=== PATIENT | male | born 1950 | race Caucasian/White ===

== ENCOUNTER → 2020-05-19 13:49 | Outpatient (BNVA) | payer MEDICARE, SELFPAY | PROVIDERS: PCP Internal Medicine; Visit Provider Urology | DX: N48.6 Induration penis plastica (principal); N52.01 Erectile dysfunction due to arterial insufficiency; N40.1 Benign prostatic hyperplasia with lower urinary tract symptoms; N13.8 Other obstructive and reflux uropathy; R97.20 Elevated prostate specific antigen [PSA] | CPT/HCPCS: Q3014 ==

== ENCOUNTER 2020-08-13 15:19 | Outpatient (REF) | payer MEDICARE, BC, SELFPAY ==
[2020-08-14 14:14] LABS: Urine Cytology See Pathology rpt
== END 2020-08-13 15:20 | disposition home or self-care (01) ==
LOC: HO.LNP 15:19
PROVIDERS: PCP Internal Medicine; Visit Provider Urology
DX: R31.0 Gross hematuria (principal); N39.0 Urinary tract infection, site not specified; R97.20 Elevated prostate specific antigen [PSA]; N48.6 Induration penis plastica; Z87.891 Personal history of nicotine dependence
CPT/HCPCS: 81002; 88112; 99212

== ENCOUNTER 2020-08-18 13:25 | Outpatient (REF) | payer MEDICARE, BC, SELFPAY ==
[2020-08-18 14:37] LABS: Glucose Urine UA NEG (NEG); Leukocyte Esterase Urine NEG (NEG); Nitrite Urine NEG (NEG); PH 6.5 (5.0-8.0); Urine Blood NEG (NEG); Urine Ketones NEG (NEG); Urine Protein NEG (NEG-TRACE)
[2020-08-18 14:40] LABS: Appearance Urine CLEAR; Color Urine YELLOW
[2020-08-18 14:46] LABS: RBC Urine 0-2 /HPF (0); Squamous Epithelial Cell Urine TRACE /LPF; WBC Urine 0 /HPF (0-4)
== END 2020-08-18 13:26 | disposition home or self-care (01) ==
LOC: HO.LAB 13:25
PROVIDERS: PCP Internal Medicine; Visit Provider Urology
DX: R31.0 Gross hematuria (principal); N39.0 Urinary tract infection, site not specified
CPT/HCPCS: 81001; 87086

== ENCOUNTER → 2020-09-01 12:43 | Outpatient (BNVA) | payer MEDICARE, BC, SELFPAY | PROVIDERS: PCP Internal Medicine; Visit Provider Urology | DX: N40.1 Benign prostatic hyperplasia with lower urinary tract symptoms (principal); N13.8 Other obstructive and reflux uropathy; N52.01 Erectile dysfunction due to arterial insufficiency; R97.20 Elevated prostate specific antigen [PSA] | CPT/HCPCS: 52000; 81002; 99212 ==

== ENCOUNTER → 2020-11-17 14:20 | Outpatient (BNVA) | payer MEDICARE, BC, SELFPAY | PROVIDERS: PCP Internal Medicine; Visit Provider Urology | DX: N40.1 Benign prostatic hyperplasia with lower urinary tract symptoms (principal); N13.8 Other obstructive and reflux uropathy; N48.6 Induration penis plastica; N52.01 Erectile dysfunction due to arterial insufficiency | CPT/HCPCS: 99212 ==

== ENCOUNTER → 2021-07-09 11:48 | Outpatient (BNVA) | payer MEDICARE, BC, SELFPAY | PROVIDERS: PCP Internal Medicine; Visit Provider Urology | DX: N52.01 Erectile dysfunction due to arterial insufficiency (principal); N48.6 Induration penis plastica; R97.20 Elevated prostate specific antigen [PSA] | CPT/HCPCS: Q3014 ==

== ENCOUNTER 2021-09-22 11:28 | Outpatient (REF) | payer MEDICARE, BC, SELFPAY ==
[2021-09-22 12:38] LABS: Appearance Urine CLEAR; Color Urine YELLOW; Glucose Urine UA NEG (NEG); Leukocyte Esterase Urine NEG (NEG); Nitrite Urine NEG (NEG); PH 6.5 (5.0-8.0); Urine Blood NEG (NEG); Urine Ketones NEG (NEG); Urine Protein NEG (NEG-TRACE)
[2021-09-22 12:49] LABS: WBC Urine 0 /HPF (0-4)
[2021-09-22 13:21] LABS: Prostate Specific Antigen 1.39 ng/mL (<0.05-4.0)
== END 2021-09-22 11:29 | disposition home or self-care (01) ==
LOC: HO.LAB 11:28
PROVIDERS: Visit Provider Urology
DX: N39.0 Urinary tract infection, site not specified (principal); N48.6 Induration penis plastica; Z12.5 Encounter for screening for malignant neoplasm of prostate
CPT/HCPCS: 36415; 81001; 84153; 87086

== ENCOUNTER → 2022-01-07 08:25 | Outpatient (BNVA) | payer MEDICARE, BC, SELFPAY | PROVIDERS: PCP Internal Medicine; Visit Provider Urology | DX: R97.20 Elevated prostate specific antigen [PSA] (principal); N40.1 Benign prostatic hyperplasia with lower urinary tract symptoms; N13.8 Other obstructive and reflux uropathy; N48.6 Induration penis plastica | CPT/HCPCS: Q3014 ==

== ENCOUNTER → 2022-07-15 13:15 | Outpatient (BNVA) | payer MEDICARE, BC, SELFPAY | PROVIDERS: PCP Internal Medicine; Visit Provider Urology | DX: N48.6 Induration penis plastica (principal); N52.01 Erectile dysfunction due to arterial insufficiency; N40.1 Benign prostatic hyperplasia with lower urinary tract symptoms; N13.8 Other obstructive and reflux uropathy | CPT/HCPCS: 99212 ==

== ENCOUNTER 2023-03-23 12:55 | Outpatient (AMB) | payer MEDICARE, BC, SELFPAY ==
--- NOTE | 2023-03-23 13:57 | A.OFFVIS_ITS ---
Intake Intake Visit Reasons: 6M/PSA/Testosterone(set) Allergies No Known Allergies Allergy (Verified 03/23/23 13:36) HPI HPI Comments History of Present Illness Details Kash very pleasant male. He is a patient of Dr. Cortez. He seen for the following urologic issues - Peyronie disease - lower urinary tract symptoms - elevated PSA Telemedicine Evaluation 15 min Consultation [employer]ide[employer] Annie Video attempted Current medications include tadalafil 5 daily Finasteride - reduce to M/W/F 6m f/u PVR Elevated PSA/Abnormal AMANDA: Peyronie's plaque has stabilized Has not progressed Minimal pain Still functional Picture of erection shows 20-30% dorsal curvature He presents for further evaluation of elevated PSA Current management is observation. Laboratory investigations include a free and total PSA evaluation January 2007 3.3, March 2009 2.1, August 2014 4.2, November 2014 2.6, July 2015 2.9, December 2015 3.9, Free PSA 0.28 July 2016 4.5, 03/07 T 680 10/06 3.7, 04/08 4.5 01/07 3.8, 04/09 5.3 11% 08/08 4.8 15%, 02/08 T 650 PSA 2.3 - 11/09 PSA 2.2, 07/13 1.7 Individualized Prostate Cancer Risk Calculator 5-10% high risk, Would like to continue with observation and understands and accepts the risks of a possible delay in diagnosis. A TRUS biopsy has been performed and is negative March 2006 with PSA of 5.2 Therapeutic plan will be review in 6 months Lower Urinary Tract Symptoms: Prior treatments include 12/07 TUR GLP. Prostate Symptom Score Moderate (9-19), Bother 3. Symptoms include 03/07 incomplete emptying, weak stream, nocturia (>2), and are progressing. Results from testing include cystoscopy Enlarged lateral lobes, apple shaped intrusion 04/07 renal/bladder us Yes date 04/05/2017 PVR 30 prostate size 70 Prior Prostate Score moderate. PSA 4-5 04/08 4.5, 04/09 5.3 11%, 07/13 1.7, 10/10 1.4, 02/11 1.9 T 900 Prostate volume 50+gm - large on AMANDA. 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 Peyronie's disease Testicular pain Weak urinary stream Surgical History H/O angioplasty History of back surgery History of carpal tunnel release History of hand surgery History of hernia repair History of hydrocelectomy History of tonsillectomy Review of Systems Const All systems reviewed & are unremarkable except as noted in HPI and below Reports no additional complaints Resp Reports no additional complaints GI Reports no additional complaints Reports as per HPI Musc Reports no additional complaints Physical Exam Telemedicine evaluation Appropriate responses Regular breathing rate and rhythm HEENT Head: Yes normal to inspection Ears: hearing grossly normal bilaterally Eyes General: appearance normal, both eyes and all related structures Neck Neck: Yes normal visual inspection Chest Chest palpation & inspection: normal inspection of the chest Resp Effort & Inspection: normal respiratory effort and able to speak in complete sentences Assessment & Plan Assessment & Plan (1) BPH w urinary obs/LUTS: Code(s): N40.1 - Benign prostatic hyperplasia with lower urinary tract symptoms; N13.8 - Other obstructive and reflux uropathy (2) Erectile dysfunction due to arterial insufficiency: Code(s): N52.01 - Erectile dysfunction due to arterial insufficiency Plan Continue tadalafil 6 month follow-up Medications: Changed From tadalafil 5 mg PO DAILY PRN 90 tabs 1RF sexual activity N48.6 - Induration penis plastica To tadalafil 5 mg (1/2 x 10 mg) PO DAILY 90 days PRN 45 tabs 1RF sexual activity N48.6 - Induration penis plastica Patient Instructions: Imaging studies, laboratory and physical exam results were discussed and reviewed in detail. No major barriers to patient understanding were identified. An opportunity to ask questions regarding the treatment plan was provided. All questions were answered. The patient expressed understanding and agreement with the above treatment plan. The patient is aware they should contact our office by phone for worsening of their current condition or the appearance of new urologic symptoms. Compliance is encouraged with any medications and followup testing that is ordered. It is a privilege to participate in the urologic care of your patient. If you have any questions or concerns regarding treatment for the above conditions, or other urologic issues, please do not hesitate to contact me. The office telephone contact is [phone]. This note is constructed using voice recognition software. While every effort has been made to ensure accuracy floral designer errors may have been included. Yours sincerely, Dr Alin Mosqueda MD, [facility] - Urology Providers of Expert, Compassionate Care for the Genitourinary System Telehealth Telehealth Location of provider rendering services: practice address Location of patient: address on file Patient Identification confirmed using: Name, : Yes Telehealth method: video Patient verbally consented to treatment: Yes Patient verbally consented to billing insurance company: Yes Patient informed of any privacy concerns related to visit: Yes Coding Level of Care Code Tele Est Pt Level 3 (60872) Diagnoses BPH w urinary obs/LUTS N40.1; N13.8 Erectile dysfunction due to arterial insufficiency N52.01
== END 2023-03-23 14:25 | disposition home or self-care (01) ==
LOC: HO.HUSH 12:55
PROVIDERS: PCP Internal Medicine; Visit Provider Urology
DX: N40.1 Benign prostatic hyperplasia with lower urinary tract symptoms (principal); N13.8 Other obstructive and reflux uropathy; N52.01 Erectile dysfunction due to arterial insufficiency
CPT/HCPCS: 99213

== ENCOUNTER → 2023-03-23 12:55 | Outpatient (BNVA) | payer MEDICARE, BC, SELFPAY | PROVIDERS: PCP Internal Medicine; Visit Provider Urology ==

== ENCOUNTER 2023-09-27 13:24 | Outpatient (AMB) | payer MEDICARE, BC, SELFPAY ==
--- NOTE | 2023-09-27 13:32 | MHC.OFFVIS ---
Intake Visit Reasons: 6m/PVR Intake Note: Patient is Present for PVR/ Urology Med: Sildenafil, Tadalafil, Finasteride Antibiotic Allergy:None Blood Thinner:Clopidogrel Todays PVR:0 Patient wants to discuss Finasteride, patient states that he went to donate Plasma and was informed that due to him taking finasteride he is not able to donate Allergies No Known Allergies Allergy (Verified 09/27/23 13:33) Medication List - Last Reconciled 09/27/23 by Alin Mosqueda MD albuterol sulfate 90 mcg/actuation 0 mcg inhalation atorvastatin 40 mg PO DAILY atorvastatin 80 mg PO DAILY azithromycin 250 mg PO DIRECTED budesonide-formoterol 80-4.5 mcg/actuation 2 puffs PO BID clopidogrel 75 mg PO DAILY finasteride 5 mg PO DAILY levothyroxine 75 mcg PO DAILY meloxicam 15 mg PO DAILY metoprolol succinate ER 50 mg PO DAILY [id number] 140-9-5.2 gram ea PO sildenafil 50 mg PO DAILY PRN 30 days tadalafil 10 mg PO DAILY PRN 30 days vitamin E (dl, acetate) 450 mg PO DAILY HPI Comments Details: Kash very pleasant male. He is a patient of Dr. Cortez. He seen for the following urologic issues - Peyronie disease - lower urinary tract symptoms - elevated PSA Doing well with bladder emptying Finasteride - M/W/F Given refill on prescriptions tadalafil 10 mg and sildenafil 100 mg to use on demand Elevated PSA/Abnormal AMANDA: Peyronie's plaque has stabilized Has not progressed Minimal pain Still functional Picture of erection shows 20-30% dorsal curvature He presents for further evaluation of elevated PSA Current management is observation. Laboratory investigations include a free and total PSA evaluation January 2007 3.3, March 2009 2.1, August 2014 4.2, November 2014 2.6, July 2015 2.9, December 2015 3.9, Free PSA 0.28 July 2016 4.5, 03/07 T 680 10/06 3.7, 04/08 4.5 01/07 3.8, 04/09 5.3 11% 08/08 4.8 15%, 02/08 T 650 PSA 2.3 - 11/09 PSA 2.2, 07/13 1.7 Individualized Prostate Cancer Risk Calculator 5-10% high risk, Would like to continue with observation and understands and accepts the risks of a possible delay in diagnosis. A TRUS biopsy has been performed and is negative March 2006 with PSA of 5.2 Therapeutic plan will be review in 6 months Lower Urinary Tract Symptoms: Prior treatments include 12/07 TUR GLP. Prostate Symptom Score Moderate (9-19), Bother 3. Symptoms include 03/07 incomplete emptying, weak stream, nocturia (>2), and are progressing. Results from testing include cystoscopy Enlarged lateral lobes, apple shaped intrusion 04/07 renal/bladder us Yes date 04/05/2017 PVR 30 prostate size 70 Prior Prostate Score moderate. PSA 4-5 04/08 4.5, 04/09 5.3 11%, 07/13 1.7, 10/10 1.4, 02/11 1.9 T 900 Prostate volume 50+gm - large on AMANDA. 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 Weak urinary stream BPH (benign prostatic hyperplasia) Testicular pain Erectile dysfunction Elevated PSA Surgical History H/O angioplasty History of hand surgery History of carpal tunnel release History of hydrocelectomy History of back surgery History of hernia repair History of tonsillectomy Review of Systems Const Denies chills and Denies fever(s) Card Reports no additional complaints and Denies syncope Resp Denies cough GI Denies abdominal pain and Denies heartburn Reports as per HPI and Denies change in libido Neuro Denies syncope Psych Denies change in libido Endo Denies change in libido Physical Exam Const General: cooperative, healthy appearing, comfortable and no acute distress Orientation/consciousness: patient oriented x3 HEENT Face and sinus: Yes normal facial exam Mouth: moist mucous membranes Neck Neck: Yes normal visual inspection, Yes full ROM and Yes trachea midline Chest Chest palpation & inspection: normal inspection of the chest Resp Effort & Inspection: normal respiratory effort, able to speak in complete sentences and no respiratory distress GI Inspection: Yes normal to inspection Back/Spine/Pelvis Cervical Spine: normal cervical lordosis Thoracic/Lumbar Spine: thoracic and lumbar spine normal to inspection Skin General skin exam: no rashes or lesions noted Neuro General: patient oriented x3, gait normal, tone normal and moves all extremities Extrem General: Yes normal to inspection and Yes capillary refill normal Office Procedures Post Void Residual Post Residual Void Post Void Residual (PVR): 0 [id number] Void Residual by ultrasound Assessment & Plan Assessment & Plan (1) BPH w urinary obs/LUTS: Code(s): N40.1 - Benign prostatic hyperplasia with lower urinary tract symptoms; N13.8 - Other obstructive and reflux uropathy Category: Medical (2) Erectile dysfunction due to arterial insufficiency: Code(s): N52.01 - Erectile dysfunction due to arterial insufficiency Category: Medical (3) Elevated PSA: Code(s): R97.20 - Elevated prostate specific antigen [PSA] Category: Medical Plan Six-month follow-up Orders: Orders AMB Post Void Residual by ultrasound Today N13.8 - Other obstructive and reflux uropathy, N40.1 - Benign prostatic hyperplasia with lower urinary tract symptoms Patient Instructions: Imaging studies, laboratory and physical exam results were discussed and reviewed in detail. No major barriers to patient understanding were identified. An opportunity to ask questions regarding the treatment plan was provided. All questions were answered. The patient expressed understanding and agreement with the above treatment plan. The patient is aware they should contact our office by phone for worsening of their current condition or the appearance of new urologic symptoms. Compliance is encouraged with any medications and followup testing that is ordered. It is a privilege to participate in the urologic care of your patient. If you have any questions or concerns regarding treatment for the above conditions, or other urologic issues, please do not hesitate to contact me. The office telephone contact is [phone]. This note is constructed using voice recognition software. While every effort has been made to ensure accuracy filling room operator errors may have been included. Yours sincerely, Dr Alin Mosqueda MD, [facility] - Urology Providers of Expert, Compassionate Care for the Genitourinary System Coding Level of Care Code Est Pt Level 4 (13763) Diagnoses BPH w urinary obs/LUTS N40.1; N13.8 Erectile dysfunction due to arterial insufficiency N52.01 Elevated PSA R97.20 CPT Codes Post Residual Void - PVR CPT Code: 65021-Unat Void Residual by ultrasound ([id number])
== END 2023-09-27 13:56 | disposition home or self-care (01) ==
PROVIDERS: PCP Internal Medicine; Visit Provider Urology
DX: N40.1 Benign prostatic hyperplasia with lower urinary tract symptoms (principal); N13.8 Other obstructive and reflux uropathy; N52.01 Erectile dysfunction due to arterial insufficiency; R97.20 Elevated prostate specific antigen [PSA]
CPT/HCPCS: 99214

== ENCOUNTER → 2023-09-27 13:24 | Outpatient (BNVA) | payer MEDICARE, BC, SELFPAY | PROVIDERS: PCP Internal Medicine; Visit Provider Urology | DX: N40.1 Benign prostatic hyperplasia with lower urinary tract symptoms (principal); N13.8 Other obstructive and reflux uropathy; N52.01 Erectile dysfunction due to arterial insufficiency; R97.20 Elevated prostate specific antigen [PSA] | CPT/HCPCS: 51798; 99212 ==

== ENCOUNTER 2024-03-29 09:07 | Outpatient (AMB) | payer MEDICARE, BC, SELFPAY ==
--- NOTE | 2024-03-29 09:11 | MHC.OFFVIS ---
Intake Visit Reasons: 6m/PVR/UA Check Intake Note: Patient is present for PVR/Urinalysis Check Urology Med: Finasteride, Sildenafil, Tadalafil Antibiotic Allergies: None Blood Thinner: Clopidogrel Last PVR:0ML Todays PVR: 32 LAST PSA: 01/04/2023- 1.9 LAST TESTOSTERONE: 01/04/2023- H 930 Allergies No Known Allergies Allergy (Verified 09/27/23 13:33) HPI Comments Details: Kash very pleasant male. He is a patient of Dr. Cortez. He seen for the following urologic issues - Peyronie disease - lower urinary tract symptoms - elevated PSA Six-month follow-up Doing well with bladder emptying Finasteride - M/W/F Given refill on prescriptions tadalafil 10 mg and sildenafil 100 mg to use on demand Has some issues with erectile maintenance Information given regarding penile constriction band Elevated PSA/Abnormal AMANDA: Peyronie's plaque has stabilized Has not progressed Minimal pain Still functional Picture of erection shows 20-30% dorsal curvature He presents for further evaluation of elevated PSA Current management is observation. Laboratory investigations include a free and total PSA evaluation January 2007 3.3, March 2009 2.1, August 2014 4.2, November 2014 2.6, July 2015 2.9, December 2015 3.9, Free PSA 0.28 July 2016 4.5, 03/07 T 680 10/06 3.7, 04/08 4.5 01/07 3.8, 04/09 5.3 11% 08/08 4.8 15%, 02/08 T 650 PSA 2.3 - 11/09 PSA 2.2, 07/13 1.7 Individualized Prostate Cancer Risk Calculator 5-10% high risk, Would like to continue with observation and understands and accepts the risks of a possible delay in diagnosis. A TRUS biopsy has been performed and is negative March 2006 with PSA of 5.2 Therapeutic plan will be review in 6 months Lower Urinary Tract Symptoms: Prior treatments include 12/07 TUR GLP. Prostate Symptom Score Moderate (9-19), Bother 3. Symptoms include 03/07 incomplete emptying, weak stream, nocturia (>2), and are progressing. Results from testing include cystoscopy Enlarged lateral lobes, apple shaped intrusion 04/07 renal/bladder us Yes date 04/05/2017 PVR 30 prostate size 70 Prior Prostate Score moderate. PSA 4-5 04/08 4.5, 04/09 5.3 11%, 07/13 1.7, 10/10 1.4, 02/11 1.9 T 900 Prostate volume 50+gm - large on AMANDA. 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 Weak urinary stream BPH (benign prostatic hyperplasia) Testicular pain Erectile dysfunction Elevated PSA Surgical History H/O angioplasty History of hand surgery History of carpal tunnel release History of hydrocelectomy History of back surgery History of hernia repair History of tonsillectomy Review of Systems Const Denies chills and Denies fever(s) Card Reports no additional complaints and Denies syncope Resp Denies cough GI Denies abdominal pain and Denies heartburn Reports as per HPI and Denies change in libido Neuro Denies syncope Psych Denies change in libido Endo Denies change in libido Physical Exam Const General: cooperative, healthy appearing, comfortable and no acute distress Orientation/consciousness: patient oriented x3 HEENT Face and sinus: Yes normal facial exam Mouth: moist mucous membranes Neck Neck: Yes normal visual inspection, Yes full ROM and Yes trachea midline Chest Chest palpation & inspection: normal inspection of the chest Resp Effort & Inspection: normal respiratory effort, able to speak in complete sentences and no respiratory distress GI Inspection: Yes normal to inspection Back/Spine/Pelvis Cervical Spine: normal cervical lordosis Thoracic/Lumbar Spine: thoracic and lumbar spine normal to inspection Skin General skin exam: no rashes or lesions noted Neuro General: patient oriented x3, gait normal, tone normal and moves all extremities Extrem General: Yes normal to inspection and Yes capillary refill normal Office Procedures Post Void Residual Post Residual Void Post Void Residual (PVR): 32 [id number] Void Residual by ultrasound Results AMB Urinalysis, Automated UA Leukoctes 0 Juan/uL Last Edit by STACEY Hernandez on 03/29/24 09:19 UA Nitrite Negative Last Edit by STACEY Hernandez on 03/29/24 09:19 UA Urobilinogen 0.2 mg/dL Last Edit by Nori Alcantara, RMA on 03/29/24 09:19 UA Protein 0 mg/dL Last Edit by Nori Alcantara, RMA on 03/29/24 09:19 UA pH 7.0 Last Edit by Nori Alcantara, RMA on 03/29/24 09:19 UA Blood 0 Alvin/uL Last Edit by Nori Alcantara, RMA on 03/29/24 09:19 UA Specific [place] 1.010 Last Edit by Nori Alcantara, RMA on 03/29/24 09:19 UA Ketone Negative Last Edit by Nori Alcantara, RMA on 03/29/24 09:19 UA Bilirubin 0 mg/dL Last Edit by Nori Alcantara, RMA on 03/29/24 09:19 UA Glucose 0 mg/dL Last Edit by Nori Alcantara, RMA on 03/29/24 09:19 Results Reviewed Results Reviewed: Laboratory Last Values Urine pH (Auto) 7.0 03/29/24 09:14 Specific [place] (Auto) 1.010 03/29/24 09:14 Urine Protein (Auto) 0 mg/dL 03/29/24 09:14 Glucose (UA)(Auto) 0 mg/dL 03/29/24 09:14 Urine Ketones (Auto) Negative 03/29/24 09:14 Urine Blood (Auto) 0 Alvin/uL 03/29/24 09:14 Urine Nitrite (Auto) Negative 03/29/24 09:14 Urine Bilirubin (Auto) 0 mg/dL 03/29/24 09:14 Urine Urobilinogen (Auto) 0.2 mg/dL 03/29/24 09:14 Leukocyte Esterase (Auto) 0 Juan/uL 03/29/24 09:14 Assessment & Plan Assessment & Plan (1) Peyronie's disease: Code(s): N48.6 - Induration penis plastica Category: Medical (2) Erectile dysfunction due to arterial insufficiency: Code(s): N52.01 - Erectile dysfunction due to arterial insufficiency Category: Medical Plan Six-month follow-up Orders: Orders AMB Post Void Residual by ultrasound Today N13.8 - Other obstructive and reflux uropathy, N40.1 - Benign prostatic hyperplasia with lower urinary tract symptoms AMB Urinalysis Automated Today Z13.9 - Encounter for screening, unspecified Prostate Specific Antigen 6 Months N13.8 - Other obstructive and reflux uropathy, N40.1 - Benign prostatic hyperplasia with lower urinary tract symptoms Patient Instructions: Imaging studies, laboratory and physical exam results were discussed and reviewed in detail. No major barriers to patient understanding were identified. An opportunity to ask questions regarding the treatment plan was provided. All questions were answered. The patient expressed understanding and agreement with the above treatment plan. The patient is aware they should contact our office by phone for worsening of their current condition or the appearance of new urologic symptoms. Compliance is encouraged with any medications and followup testing that is ordered. It is a privilege to participate in the urologic care of your patient. If you have any questions or concerns regarding treatment for the above conditions, or other urologic issues, please do not hesitate to contact me. The office telephone contact is [phone]. This note is constructed using voice recognition software. While every effort has been made to ensure accuracy office machines teacher errors may have been included. Yours sincerely, Dr Alin Mosqueda MD, [facility] - Urology Providers of Expert, Compassionate Care for the Genitourinary System Coding Level of Care Code Est Pt Level 4 (33979) Diagnoses Peyronie's disease N48.6 Erectile dysfunction due to arterial insufficiency N52.01 CPT Codes Post Residual Void - PVR CPT Code: 10694-Wndi Void Residual by ultrasound ([id number])
== END 2024-03-29 09:49 | disposition home or self-care (01) ==
PROVIDERS: PCP Internal Medicine; Visit Provider Urology
DX: N48.6 Induration penis plastica (principal); N52.01 Erectile dysfunction due to arterial insufficiency; Z13.9 Encounter for screening, unspecified
CPT/HCPCS: 99214

== ENCOUNTER → 2024-03-29 09:07 | Outpatient (BNVA) | payer MEDICARE, BC, SELFPAY | PROVIDERS: PCP Internal Medicine; Visit Provider Urology | DX: N48.6 Induration penis plastica (principal); N52.01 Erectile dysfunction due to arterial insufficiency | CPT/HCPCS: 51798; 81003; 99212 ==

== ENCOUNTER 2024-10-03 13:04 | Outpatient (AMB) | payer MEDICARE, BC, SELFPAY ==
--- NOTE | 2024-10-03 11:48 | MHC.OFFVIS ---
Intake Visit Reasons: 6m/PSA Allergies No Known Allergies Allergy (Verified 10/03/24 11:48) HPI Comments Details: Kash very pleasant male. He is a patient of Dr. Cortez. He seen for the following urologic issues - Peyronie disease - lower urinary tract symptoms - elevated PSA Six-month follow-up Telemedicine Evaluation 15 min Consultation [employer] Video Doing well with bladder emptying Finasteride - M/W/F Given refill on prescriptions tadalafil 10 mg and sildenafil 100 mg to use on demand Has some issues with erectile maintenance Information given regarding penile constriction band Try increasing sildenafil to 200 mg on demand Elevated PSA/Abnormal AMANDA: Peyronie's plaque has stabilized Has not progressed Minimal pain Still functional Picture of erection shows 20-30% dorsal curvature He presents for further evaluation of elevated PSA Current management is observation. Laboratory investigations include a free and total PSA evaluation January 2007 3.3, March 2009 2.1, August 2014 4.2, November 2014 2.6, July 2015 2.9, December 2015 3.9, Free PSA 0.28 July 2016 4.5, 03/07 T 680 10/06 3.7, 04/08 4.5 01/07 3.8, 04/09 5.3 11% 08/08 4.8 15%, 02/08 T 650 PSA 2.3, 11/09 PSA 2.2, 07/13 1.7, 10/13 1.7 Individualized Prostate Cancer Risk Calculator 5-10% high risk, Would like to continue with observation and understands and accepts the risks of a possible delay in diagnosis. A TRUS biopsy has been performed and is negative March 2006 with PSA of 5.2 Therapeutic plan will be review in 6 months Lower Urinary Tract Symptoms: Prior treatments include 12/07 TUR GLP. Prostate Symptom Score Moderate (9-19), Bother 3. Symptoms include 03/07 incomplete emptying, weak stream, nocturia (>2), and are progressing. Results from testing include cystoscopy Enlarged lateral lobes, apple shaped intrusion 04/07 renal/bladder us Yes date 04/05/2017 PVR 30 prostate size 70 Prior Prostate Score moderate. PSA 4-5 04/08 4.5, 04/09 5.3 11%, 07/13 1.7, 10/10 1.4, 02/11 1.9 T 900 Prostate volume 50+gm - large on AMANDA. 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 Weak urinary stream BPH (benign prostatic hyperplasia) Testicular pain Erectile dysfunction Elevated PSA Surgical History H/O angioplasty History of hand surgery History of carpal tunnel release History of hydrocelectomy History of back surgery History of hernia repair History of tonsillectomy Review of Systems Const All systems reviewed & are unremarkable except as noted in HPI and below Reports no additional complaints Resp Reports no additional complaints GI Reports no additional complaints Reports as per HPI Musc Reports no additional complaints Physical Exam Telemedicine evaluation Appropriate responses Regular breathing rate and rhythm HEENT Head: Yes normal to inspection Ears: hearing grossly normal bilaterally Eyes General: appearance normal, both eyes and all related structures Neck Neck: Yes normal visual inspection Chest Chest palpation & inspection: normal inspection of the chest Resp Effort & Inspection: normal respiratory effort and able to speak in complete sentences Telehealth Telehealth Telehealth Platform: [employer] Location of provider rendering services: practice address Location of patient: address on file Patient Identification confirmed using: Name, : Yes Telehealth method: video Patient verbally consented to treatment: Yes Patient verbally consented to billing insurance company: Yes Patient informed of any privacy concerns related to visit: Yes Assessment & Plan Assessment & Plan (1) Erectile dysfunction due to arterial insufficiency: Code(s): N52.01 - Erectile dysfunction due to arterial insufficiency Category: Medical (2) BPH w urinary obs/LUTS: Code(s): N40.1 - Benign prostatic hyperplasia with lower urinary tract symptoms; N13.8 - Other obstructive and reflux uropathy Category: Medical (3) Elevated PSA: Code(s): R97.20 - Elevated prostate specific antigen [PSA] Category: Medical Plan Increase on demand dose Orders: Orders Prostate Specific Antigen 12 Months R97.20 - Elevated prostate specific antigen [PSA] Medications: Refilled tadalafil 10 mg PO DAILY 90 days PRN 90 tabs 1RF sexual activity N48.6 - Induration penis plastica sildenafil administer 60 minutes before intended activity 50 mg PO DAILY 30 days PRN 30 tabs 5RF sexual activity N52.01 - Erectile dysfunction due to arterial insufficiency Patient Instructions: This note is constructed using voice recognition software. While every effort has been made to ensure accuracy windows systems administrator errors may have been included. Imaging studies, laboratory and physical exam results were discussed and reviewed in detail. No major barriers to patient understanding were identified. An opportunity to ask questions regarding the treatment plan was provided. All questions were answered. The patient expressed understanding and agreement with the above treatment plan. The patient is aware they should contact our office by phone for worsening of their current condition or the appearance of new urologic symptoms. Compliance is encouraged with any medications and followup testing that is ordered. It is a privilege to participate in the urologic care of your patient. If you have any questions or concerns regarding treatment for the above conditions, or other urologic issues, please do not hesitate to contact me. The office telephone contact is [phone]. Sincerely, Dr Alin Mosqueda MD, [facility] - Urology Compassionate Specialist Care for the Genitourinary System Coding Level of Care Code Tele Est Pt Level 3 (61942) Complex EM visit Add On G2211 Diagnoses Erectile dysfunction due to arterial insufficiency N52.01 BPH w urinary obs/LUTS N40.1; N13.8 Elevated PSA R97.20
--- OUTSIDE RECORDS SUMMARY | 2024-10-03 13:37 | XMS_ITS | Encounter Summary ---
Author Organization [facility] Address [address] [place] [address] Care Team Providers Care Software Testing Specialist Name Role Phone Arsh Cortez MD Primary Care Provider [phone] Reason for Referral * Imaging (Routine) - Authorized Specialty Diagnoses / Procedures Referred By Contac t Referred To Contact Diagnoses PAD (peripheral artery disease) (CMS/[facility] V24) Procedures Vascular US duplex lower extremity arteries bilateral with MARY Kodi Johnson MD [address] [place] [phone] Phone: tel: fax: [facility] Referral ID Status Reason Start Date Expiration Date V isits Requested Visits Authorized [id number] Authorized 09/30/2024 09/30/2025 1 1 Reason for Visit * Reason Comments Peripheral Vascular Disease Encounter Details Date Type Department Care Team (Late st Contact Info) Description 09/30/2024 11:30 AM EDT Office Visit V[facility] [place] - [place] [address] [place] [phone] Kodi Johnson MD [address] [place] [id number] PAD (peripheral artery disease) (CMS/HCC V24) (Primary Dx) Social History Tobacco Use Types Packs/Day Years Used Date Smoking Tobacco: Former Cigarettes 1 48 0 12/03/1969 - 12/03/2017 Smokeless Tobacco: Former Alcohol Use Standard Drinks/Week Comments Yes 2 (1 standard drink = 0.6 oz pur e alcohol) Sex and Gender Information Value Date Recorded Sex Assigned at Not on file Legal Sex Male 10:23 PM EST Gender Identity Not on file Sexual Orientation Not on file documented as of this encounter Last Filed Vital Signs Vital Sign Reading Time Taken Comments Blood Pressure 120/60 09/30/2024 11:22 AM EDT Pulse 64 09/30/2024 11:22 AM EDT Temperature - - Respiratory Rate 16 09/30/2024 11:22 AM EDT Oxygen Saturation - - Inhaled Oxygen Concentration - - Weight - - Height 180.3 cm (5' 11 ) 09/30/2024 11:22 AM EDT Body Mass Index - - documented in this encounter Progress Notes * Kodi Johnson MD - 09/30/2024 11:30 AM EDT PATIENT: Kash Hadley ENCOUNTER: 09/30/2024 EMRN: [id number] : 1950 PCP: Arsh Cortez MD CHIEF COMPLAINT: Peripheral Vascular Disease HPI: This 74 y.o. male presents for follow-up of peripheral arterial disease. He has a remote history ofright femoral endarterectomy by Dr. Daley. He is status post right superficial femoral artery orbital atherectomy and balloon angioplasty (diamondback 1.75 mm crown, 6 x 150 mm in-pact 018 DCB x2) on 12/20/2022. There was residual 30 to 50% stenosis throughout the SFA on completion angiogram. Itwas noted that no further intervention would be performed in order to avoid stenting the entire length of the SFA. At his last visit, he was dealing with left leg pain related to sciatica and was notambulating much. He had a lower back injection and PT which has helped. 3-month follow-up for reeval uation was recommended. He is doing approximately 30 minutes on the treadmill with bilateral calf claudication which is symmetrical. He has no rest pain in his toes, ulcers or gangrene. He is status post left iliofemoral endarterectomy, deep femoral endarterectomy, and superficial femoral endarterectomy performed by Dr. Johnson on 02/01/2023. He underwent a carotid duplex on 08/22/2022 at [facility] which revealed less than 50% bilateral ICA stenosis. He denies any focal neurological deficits. He denies any history of TIA or stroke. Patient will be due for repeat carotid duplex in August 2024. Patient quit smoking 2017. He is currently on Plavix, Repatha and a statin. He normally leads a relatively active life. PAST MEDICAL HISTORY: Patient Active Problem List Diagnosis Chest pressure Coronary artery disease Hyperlipidemia PAD (peripheral artery disease) (CMS/HCC V24) Premature ventricular beats Shortness of breath PAST SURGICAL HISTORY: Past Surgical History: Procedure Laterality Date OTHER SURGICAL HISTORY 12/20/2022 PROCEDURE: NC REVSC OPN/PRQ FEM/POP W/ATHRC/ANGIOP SM VSL OTHER SURGICAL HISTORY 12/20/2022 PROCEDURE: ULTRASOUND GUIDANCE FOR VASCULAR AC OTHER SURGICAL HISTORY 01/12/2023 PROCEDURE: NC SLCTV CATHJ 2ND ORDER ABDL PEL/LXTR ART BRNCH OTHER SURGICAL HISTORY 01/12/2023 PROCEDURE: NC SLCTV CATHJ EA 2ND+ ORD ABDL PEL/LXTR ART BRNCH OTHER SURGICAL HISTORY 01/12/2023 PROCEDURE: X-RAY ABDOMINAL AORTA, LEG ARTERIES OTHER SURGICAL HISTORY 01/12/2023 PROCEDURE: X-RAY EXAM OF ARM/LEG ARTERY OTHER SURGICAL HISTORY 01/12/2023 PROCEDURE: ULTRASOUND GUIDANCE FOR VASCULAR AC OTHER SURGICAL HISTORY Left 02/01/2023 PROCEDURE: NC TEAEC W/WO PATCH GRAFT ILIOFEMORAL OTHER SURGICAL HISTORY Left 02/01/2023 PROCEDURE: NC TEAEC W/WO PATCH GRAFT DEEP PROFUNDA FEMORAL MEDICATIONS: Outpatient Medications Marked as Taking for the 09/30/24 encounter (Office Visit) with Kodi Johnson MD Medication Sig Dispense Refill ascorbic acid (VITAMIN C) 1,000 mg tablet Take 1 tablet (1,000 mg total) by mouth 1 (one) time eachday. atorvastatin (LIPITOR) 10 mg tablet Take 1 tablet (10 mg total) by mouth 1 (one) time each day. CHOLECALCIFEROL, VITAMIN D3, ORAL Take 1 tablet by mouth 1 (one) time each day. clopidogreL (PLAVIX) 75 mg tablet Take 1 tablet (75 mg total) by mouth 1 (one) time each day. evolocumab (Repatha SureClick) 140 mg/mL pen injector injection INJECT 140 MG INTO THE SKIN EVERY 14 DAYS 6 mL 2 finasteride (PROSCAR) 5 mg tablet Take 1 tablet (5 mg total) by mouth 1 (one) time each day. levothyroxine (SYNTHROID, LEVOTHROID) 100 mcg tablet Take 1 tablet (100 mcg total) by mouth 1 (one)time each day before breakfast. metoprolol succinate (TOPROL-XL) 50 mg 24 hr tablet Take 1 tablet (50 mg total) by mouth 1 (one) time each day. Do not crush or chew. tadalafiL (CIALIS) 5 mg tablet Take 1 tablet (5 mg total) by mouth 1 (one) time each day if needed. ZINC ORAL Take 50 mg by mouth. ALLERGIES: No Known Allergies SOCIAL HISTORY: Social History Tobacco Use Smoking status: Former Current packs/day: 0.00 Average packs/day: 1 pack/day for 48.0 years (48.0 ttl pk-yrs) Types: Cigarettes Start date: 12/03/1969 Quit date: 12/03/2017 Years since quittin.8 Smokeless tobacco: Former Substance Use Topics Alcohol use: Yes Alcohol/week: 2.0 standard drinks of alcohol Drug use: No FAMILY HISTORY: Family History Problem Relation Name Age of Onset Heart failure Father ROS: GENERAL: No malaise, significant weight loss or fever NECK: No lumps, goiter, pain or significant neck swelling RESPIRATORY: No cough, wheezing or shortness of breath CARDIAC: No chest pain or palpitations GI: No abdominal discomfort MUSCULOSKELETAL: SEE HPI SKIN: No lesions, rash or itching NEURO: No persistent headache, syncope, seizures, weakness or numbness VASCULAR: SEE HPI PHYSICAL EXAM: Vitals: 09/30/24 1122 BP: 120/60 Pulse: 64 Resp: 16 Height: 1.803 m (71 ) General: Alert and oriented x, 3 no acute distress, well-nourished HEENT: Normocephalic atraumatic Neck: No JVD Chest: Respiratory effort normal Cardiac: Regular rate rhythm Abdomen: Soft, nontender, nondistended Extremity: -Right upper extremity: 2+ RA -Left upper extremity: 2+ RA -Right lower extremity: 2+ femoral artery pulse palpable. No palpable DP or PT. No ulcers or gangrene. Foot warm. No edema. -Left lower extremity: 2+ femoral artery pulse palpable. No palpable DP or PT. No ulcers or gangrene. Foot warm. No edema. Neuro: Grossly intact DIAGNOSTIC TESTING: Lower Extremity Arterial Duplex - 04/29/2024 Right: MARY 0.84. Decreased amplitude digit PPG waveforms. There is mild inflow arterial occlusive disease. There is ectasia of the distal external iliac artery and common femoral artery, findings suggestiveof previous endarterectomy. There is proximal occlusion of the superficial femoral artery with monophasic waveforms distally. There is three-vessel runoff in the calf with monophasic waveforms throughout. Left: MARY 0.8. Decreased amplitude digit PPG waveforms. There is mild inflow arterial occlusive disease. There is 20 to 49% proximal mid superficial femoral artery stenosis There is 50-99% distal superficial femoral artery and popliteal artery stenosis. There is three-vessel runoff in the calf. Lower Extremity Arterial Findings Right Lower Arterial Duplex The distal external iliac artery has biphasic flow. The common femoral artery has monophasic flow. Ectatic right NETWORK TECHNOLOGY INSTRUCTOR 1.39 x 1.56 x 1.43cm. The profundafemoris artery has triphasic flow. The proximal superficial femoral artery has absent flow. The mid superficial femoral artery has monophasic flow. The distal superficial femoral artery has monophasic flow. The popliteal artery has monophasic flow. The anterior tibial artery has monophasic flow. The posterior tibial artery has monophasic flow. The mid peroneal artery has monophasic flow. Right Segmental Pressures Right BP= 127/63 Left Lower Arterial Duplex The distal external iliac artery has biphasic flow. The common femoral artery has biphasic flow. The profunda femoris artery has biphasic flow. The proximal superficial femoral artery has biphasic flow. The mid superficial femoral artery has triphasic flow. The distal superficial femoral artery has biphasic flow. The popliteal artery has monophasic flow. The anterior tibial artery has monophasic flow. The posterior tibial artery has monophasic flow. The mid peroneal artery has monophasic flow. Left Segmental Pressures Left BP= 129/64 Iliac Artery Measurements PSV Rt EIA Prox 106 cm/s Rt EIA Dist 87 cm/s Lt EIA Prox 124 cm/s Lt EIA Dist 114 cm/s Right Lower Arterial Measurements PSV NETWORK TECHNOLOGY INSTRUCTOR Prox 111 cm/s PFA 110 cm/s SFA Prox 0 cm/s SFA Mid 21 cm/s SFA Dist 44 cm/s Pop Prox 21 cm/s Pop Dist 34 cm/s SELENIUM PLANT OPERATOR Prox 44 cm/s SELENIUM [employer]ANT OPERATOR Mid 45 cm/s SELENIUM PLANT OPERATOR Dist 33 cm/s SUSY Prox 35 cm/s SUSY Mid 31 cm/s SUSY Dist 30 cm/s Peroneal Mid 23 cm/s Left Lower Arterial Measurements PSV NETWORK TECHNOLOGY INSTRUCTOR Prox 74 cm/s PFA 158 cm/s SFA Prox 48 cm/s SFA Mid 126 cm/s SFA Dist 55 cm/s Pop Prox 264 cm/s Pop Dist 39 cm/s SEL[employer]IUM PLANT OPERATOR Prox 50 cm/s SELENIUM PLANT OPERATOR Mid 45 cm/s SELENIUM PLANT OPERATOR Dist 52 cm/s SUSY Prox 39 cm/s SUSY Mid 33 cm/s SUSY Dist 31 cm/s Peroneal Mid 33 cm/s Segmental Pressure Measurements Right Left Brachial BP 127 mmHg 129 mmHg Post Tibial BP 109 mmHg 103 mmHg Dorsalis Pedis BP 98 mmHg 95 mmHg MARY 0.84 0.8 Bilateral lower extremity arterial duplex with ABIs at [facility] on 04/26/2023: Right: Multiphasic waveforms throughout the arterial tree. Triphasic anterior tibial and posterior tibial artery waveforms. Mildly abnormal ankle-brachial index at 0.85 1. There is a Severe (50-99%) stenosis in the Right Superficial Femoral Artery. 2. The right peroneal artery was not well-visualized which could be secondary to clinical limitations of the study versus an occlusion. Left: Triphasic waveforms in the EIA, common femoral artery and deep femoral artery. Monophasic waveformsin the SFA through the tibial arteries. Mildly abnormal ankle-brachial index at 0.83 1.There is a Severe (50-99%) stenosis in the Left Superficial Femoral Artery. Carotid duplex at [facility] on 08/22/2022: Less than 50% bilateral ICA stenosis. Bilateral antegrade vertebral artery flow. Bilateral lower extremity arterial duplex on 09/14/2022 at [facility]: Right: MARY 0.83. Right NETWORK TECH[employer] INSTRUCTOR 20-49% stenosis. Right SFA mid and distal near occlusion, new with collaterals. Three-vessel runoff. Left: MARY 0.76. Left EIA 20-49% stenosis. NETWORK TECHNOLOGY INSTRUCTOR, mid SFA, left proximal popliteal artery 50-99% stenosis Diagnostic Imaging Department [address] [place] [address] [id number] Patient: KASH HADLEY Zander /Age/Sex: 1950 - 70 - M Unit#: [id number] Location/Status: SPDICAT/REG CLI Mnemonic/Ordering Site: [facility] Ordering Physician: KODI JOHNSON MD CT Aorta W Runoff Angiography - 03/24/21924 HISTORY: Atherosclerotic peripheral vascular disease. Previous angioplasty right SFA stenoses. TECHNIQUE: CT angiography abdomen, pelvis and both lower extremities performed. Volumetric imaging through the abdomen, pelvis and both lower extremities performed during dynamic IV contrast infusionwith bolus tracking technology. Axial, sagittal and coronal images assessed. Three-dimensional angiographic reformations created on an independent workstation assisting image assessment. Contrast injected: 120 mL Isovue 370 followed by 50 mL saline bolus. Comparison/correlation: CT angiography aorta and runoff 04/16/2013. Conventional angiography 06/09/2020 and 03/27/2019. FINDINGS: CT Angiography Abdomen and Pelvis: Atherosclerotic changes affect non-aneurysmal abdominal aorta. Peripheral calcification and mild layering thrombus without flow-limiting stenosis affecting aorta, renal arteries, celiac axis or superior mesenteric artery. Small-caliber inferior mesenteric artery origin. No flow-limiting stenosis aff ecting common or external iliac arteries. Sigmoid and left colon diverticulosis without superimposed diverticulitis. No concerning incidentalabnormality. Degenerative changes within the spine maximal L4-L5 and L5-S1. Grade [address] Angiography Right Lower Extremity: Surgical clips within the right groin. Enlargement of common femoral artery suggestive of previous endarterectomy. Complex stenosis shown previously resolved. No flow-limiting stenosis affecting profunda femoris artery. Tandem stenoses affects the SFA proximal to mid SFA and additionally affecting distal SFA close to adductor canal, without vessel stenosis. Approximate 70% luminal diameter narrowing. Patent popliteal artery without flow-limiting stenosis. Patent three-vessel runoff. CT Angiography Left Lower Extremity: Moderate severity stenosis affects common femoral artery, 60-70% stenotic, without occlusion. Scattered atherosclerotic plaque throughout SFA. Mild luminal narrowing proximal to mid vessel. Moderate severity more complex stenosis at level of adductor canal, 60-70% stenotic. Mild narrowing proximal popliteal artery, approximately 50% narrowed. No flow-limiting stenosis affects mid to distal popliteal artery. Patent three-vessel runoff. IMPRESSION: 1. CT angiography abdomen and pelvis: No flow-limiting stenosis affecting inflow to the lower extremities. No mesenteric or renal artery stenosis. 2. Right lower extremity CT angiography: Postoperative changes status post right common femoral artery endarterectomy. Flow-limiting stenoses affecting mid and distal SFA, approximate 60-70% severity. No flow-limiting stenosis identified affecting popliteal artery or three-vessel runoff. 3. Left lower extremity CT angiography: Complex, flow-limiting stenosis affecting common femoral artery and distal superficial femoral artery. Mild stenosis affecting proximal popliteal artery. [id number] Dose reduction techniques utilized including automated exposure control (mA and kVp adjusted according to patient's size). Iterative reconstruction techniques utilized. DLP: 1570 mGy-cm. Dictating Physician: THONG COTTO MD Electronically Signed by: THONG COTTO MD Dic Date/Time: 03/26/21 1642 Sign date/Time: 03/26/21 [id number] Carotid duplex on 03/09/2020 at [facility]: less than 50% bilateral ICA stenosis. I independently reviewed the study reports. Images were available for review. I independently reviewed the studies along with the images. ASSESSMENT: 1. PAD (peripheral artery disease) ([facility] V24) PLAN: 74 y.o. male with history of left iliofemoral endarterectomy on 02/01/2023., remote history of rightfemoral endarterectomy for PAD s/p right superficial femoral artery orbital atherectomy and balloonangioplasty (diamondback 1.75 mm crown, 6 x 150 mm in-pact 018 DCB x2) on 12/20/2022. It was noted that no further intervention would be performed in order to avoid stenting the entire length of the SFA. Patient presents today for review of arterial duplex and has an occlusion of the right proximal SFA. He also has 50-99% of the left distal SFA and popliteal artery. He is not eliciting any lifestyle limiting claudication. He was encourage to walk more including on the treadmill. He is currently mildly symptomatic, I recommended conservative management including a walking regimen. He should return in 1 year with updated bilateral extremity arterial duplex. Patient follow-up sooner should his symptoms worsen. We discussed the natural pathophysiology of PAD. I spent 31 minutes in an encounter with this patient, including time spent with patient, chart review, reviewing diagnostic studies, and documentation. documented in this encounter Plan of Treatment Upcoming Encounters Date Type Department Care Team (Late st Contact Info) Description 12/30/2024 10:40 AM EDT Office Visit [facility] Cardiology [facility] - [address] [place] [address] Precious Burkett, CAROLE [address] [place] [phone] 03/05/2025 9:50 AM EDT Office Visit [facility] - [address] [place] [address] Alvarez Tinoco MD [address] [place] [address] 09/02/2025 12:00 PM EDT Ancillary Procedure [facility] [address] [place] [address] 10/06/2025 9:30 AM EDT Office Visit Vascular Surgery - [place] [address] [place] [address] Kodi Johnson MD [address] [place] [address] Scheduled Orders Name Type Priority Associated Diagnoses Orde r Schedule Vascular US duplex lower extremity arteries bilateral with MARY Vascular Ultrasound Routine PAD (peripheral artery disease) (CMS/[facility] V24) Expected: 08/31/2025, Expires: 05/02/2026 documented as of this encounter Visit Diagnoses Diagnosis PAD (peripheral artery disease) (CMS/[facility] V24)- Primary Unspecified peripheral vascular disease documented in this encounter Care Teams Software Testing Specialist Relationship Specialty Start Date End Date Arsh Cortez MD [address] [facility] [address] [place], [place] PCP - General Internal Medicine 08/29/18 documented as of this encounter
--- OUTSIDE RECORDS SUMMARY | 2024-10-03 13:37 | XMS_ITS | Clinical Summary ---
Author Organization [address] [place] [address] [place] [phone] Phone Care Team Providers Care Supervisor Painting Name Role Phone Arsh Cortez MD Primary Care Provider Allergies No known active allergies Medications ascorbic acid (VITAMIN C) 1,000 mg tablet Take 1 tablet (1,000 mg total) by mouth 1 (one) time each day. Active CHOLECALCIFEROL , VITAMIN D3, ORAL Take 1 tablet by mouth 1 (one) time each day. Active clopidogreL (PLAVIX) 75 mg tablet Take 1 tablet (75 mg total) by mouth 1 (one) time each day. Active finasteride (PROSCAR) 5 mg tablet Take 1 tablet (5 mg total) by mouth 1 (one) time each day. Active vit C/vit E/lutein/min/om ega-3 (OCUVITE ORAL) Take 1 capsule by mouth at bedtime. Active OMEGA-3 FATTY ACIDS ORAL Take by mouth. FISH OIL BURP-LESS Active tadalafiL (CIALIS) 5 mg tablet Take 1 tablet (5 mg total) by mouth 1 (one) time each day if needed. Active vitamin E mixed 400 unit capsule Take 1 capsule by mouth 1 (one) time each day. Active ZINC ORAL Take 50 mg by mouth. Active metoprolol succinate (TOPROL-XL) 50 mg 24 hr tablet Take 1 tablet (50 mg total) by mouth 1 (one) time each day. Do not crush or chew. Active evolocumab (Repatha SureClick) 140 mg/mL pen injector injection INJECT 140 MG INTO THE SKIN EVERY 14 DAYS 6 mL 2 07/03/2024 Active levothyroxine (SYNTHROID, LEVOTHROID) 100 mcg tablet Take 1 tablet (100 mcg total) by mouth 1 (one) time each day before breakfast. Active atorvastatin (LIPITOR) 10 mg tablet Take 1 tablet (10 mg total) by mouth 1 (one) time each day. 07/22/2024 Active Active Problems Problem Noted Date Diagnosed Date Coronary artery disease 01/11/2024 Overview (03/19/2024): Last Assessment & Plan: He has severe coronary artery calcification by CT. Will reassess myocardial perfusion with nuclear stress test. Assessment & Plan (09/06/2024 6:33 PM EDT): He has multivessel coronary artery disease and coronary artery CTA reported moderate disease in all vessel territory. The mid RCA could have a more than moderate disease. He is active and exercise in the gym. Does not have a chest discomfort, shoulder discomfort between shoulder blade or shortness of breath with good level of exercise. We discussed the option of coronary artery angiogram versus continue medical treatment. For now, we will continue medical treatment. He will let me know with any new symptoms. We also discuss that if he experience prolonged chest pain, he need to go to hospital for further evaluation and treatment. He will come back in 3 months for further evaluation. TID 1.3 was in upper normal range with pharmacological nuclear perfusion stress test, especially with no perfusion defect and normal left ventricular systolic function. Assessment & Plan (07/22/2024 3:52 PM EST): Denies any signs or symptoms of coronary insufficiency at this time. He is on clopidogrel monotherapy in setting of peripheral arterial disease, atorvastatin, and metoprolol. Heavy coronary artery calcifications were seen on a low-dose CT scan done in June 2023. Given his significant risk factors of CAD, HLD PAD and pharmacological NUC stress test in January 2024 showing an elevated/abnormal TID ratio despite no EKG changes/imaging not suggestive of ischemia/infarct, order for CT of the heart has been placed. Patient advised to seek emergency medical attention by calling 911 if they were to develop severe dyspnea, chest pain that did not resolve with rest or nitroglycerin, or if they were to faint. Shortness of breath 01/11/2024 Overview (03/19/2024): Last Assessment & Plan: He had shortness of breath a few weeks ago and was empirically treated for pneumonia. EKG showed very minimal ST abnormality. I would like to schedule nuclear perfusion stress test. Chest pressure 06/16/2020 Overview (03/19/2024): Last Assessment & Plan: With normal stress test. Premature ventricular beats 06/16/2020 Overview (03/19/2024): Last Assessment & Plan: Asymptomatic. No evidence of ischemia or infarct with normal left ventricular systolic function. No exertional intolerance. We will continue current regimen. Hyperlipidemia 12/10/2018 Overview (03/19/2024): Last Assessment & Plan: He has significant hyperlipidemia and LDL was not at target despite on maximal dose statin and Zetia. He has severe coronary artery calcification by CT. I will add PCSK9 inhibitor injection to target his LDL below 70. Assessment & Plan (09/06/2024 6:33 PM EDT): Doing well with PCSK9 inhibitor and statin. Assessment & Plan (07/22/2024 3:52 PM EST): Patient has a history of hyperlipidemia, last lipid panel reviewed and under excellent control LDL of 29 which is at goal less than 70. Patient is currently taking Repatha and atorvastatin 20 mg daily. Will reduce atorvastatin to 10 mg daily. Repeat lipids prior to next visit. PAD (peripheral artery disease) ([facility] V24) Assessment & Plan (07/22/2024 3:52 PM EST): Follows closely with Dr. Sy. Encounters Date Type Department Care Team Description 10/03/2024 Telephone [facility] - [address] [place] [address] Chuy Tinoco MD 09/30/2024 11:30 AM EDT Office Visit [facility] [place] [address] [place] [address] Heraclio Johnson MD PAD (peripheral artery disease) ([facility] V24) (Primary Dx) 09/06/2024 10:20 AM EDT Office Visit [facility] - [address] [place] [address] Chuy Tinoco MD Coronary artery disease involving umkumiut coronary artery of umkumiut heart without angina pectoris (Primary Dx); Hyperlipidemia, unspecified hyperlipidemia type 09/03/2024 Telephone [facility] - [address] [place] [address] Chuy Tinoco MD Results (CT scan) 08/01/2024 Telephone [facility] - [address] [place] [address] Chuy Tinoco MD Appointment (Coronary CTA) 07/22/2024 2:00 PM EST Office Visit [facility] - [address] [place] [address] Chuy Tinoco MD Coronary artery disease involving umkumiut coronary artery of umkumiut heart without angina pectoris (Primary Dx); Hyperlipidemia, unspecified hyperlipidemia type; PAD (peripheral artery disease) ([facility] V24) from Last 3 Months Surgical History Surgery Date Site/Laterality Comments OTHER SURGICAL HISTORY 12/20/2022 PROCEDURE: FL REVSC OPN/PRQ FEM/POP W/ATHRC/ANGIOP SM VSL OTHER SURGICAL HISTORY 12/20/2022 PROCEDURE: ULTRASOUND GUIDANCE FOR VASCULAR AC OTHER SURGICAL HISTORY 01/12/2023 PROCEDURE: FL SLCTV CATHJ 2ND ORDER ABDL PEL/LXTR ART BRNCH OTHER SURGICAL HISTORY 01/12/2023 PROCEDURE: FL SLCTV CATHJ EA 2ND+ ORD ABDL PEL/LXTR ART BRNCH OTHER SURGICAL HISTORY 01/12/2023 PROCEDURE: X-RAY ABDOMINAL AORTA, LEG ARTERIES OTHER SURGICAL HISTORY 01/12/2023 PROCEDURE: X-RAY EXAM OF ARM/LEG ARTERY OTHER SURGICAL HISTORY 01/12/2023 PROCEDURE: ULTRASOUND GUIDANCE FOR VASCULAR AC OTHER SURGICAL HISTORY 02/01/2023 Left PROCEDURE: FL TEAEC W/WO PATCH GRAFT ILIOFEMORAL OTHER SURGICAL HISTORY 02/01/2023 Left PROCEDURE: FL TEAEC W/WO PATCH GRAFT DEEP PROFUNDA FEMORAL Family History Medical History Relation Name Comments Heart failure Father Relation Name Status Comments Father Social History Tobacco Use Types Packs/Day Years [...] on file Sexual Orientation Not on file Obstetrics History Last Filed Vital Signs Vital Sign Reading Time Taken Comments Blood Pressure 120/60 09/30/2024 11:22 AM EDT Pulse 64 09/30/2024 11:22 AM EDT Temperature - - Respiratory Rate 16 09/30/2024 11:22 AM EDT Oxygen Saturation 97% 09/06/2024 10:03 AM EDT Inhaled Oxygen Concentration - - Weight 101 kg (222 lb) 09/06/2024 10:03 AM EDT Height 180.3 cm (5' 11 ) 09/30/2024 11:22 AM EDT Body Mass Index 30.98 09/06/2024 10:03 AM EDT Plan of Treatment Upcoming Encounters Date Type Department Care Team (Late st Contact Info) Description 12/30/2024 10:40 AM EDT Office Visit [facility] [address] [facility] [address] [place] [address] Precious Burkett NP [address] [place] [address] 03/05/2025 9:50 AM EDT Office Visit [facility] - [facility] [address] [facility] [address] [place] [address] Chuy Tinoco MD [address] [place] [address] 09/02/2025 12:00 PM EDT Ancillary Procedure [facility] [address] [place] [phone] 10/06/2025 9:30 AM EDT Office Visit [facility] [place] [address] [place] [phone] Heraclio Johnson MD [address] [place] [address] Health Maintenance Due Date Last Done Comments DTaP,Tdap,and Td Vaccines (1 - Tdap) 1970 Zoster Vaccines (1 of 2) 2001 RSV Immunization Adult Patie nts (1 - Risk 60-74 years 1-dose series) 2011 Pneumococcal Vaccine: 50+ Ye ars (2 of 2 - PCV) 04/26/2013 04/26/2012 Abdominal Aortic Aneurysm (A AA) Screen 04/30/2022 Colorectal Cancer Screening: Colonoscopy 04/30/2022 Depression Screening 04/30/2022 Falls Risk Assessment 04/30/2022 Hepatitis C Screening 04/30/2022 Lung Cancer Screening (Low D ose CT) 04/30/2022 Social Influencers of Health Screening 04/30/2022 Medicare Annual Wellness Visit 12/17/2023 12/16/2022 COVID-19 Vaccine ( - 2023-2 5 season) 2024 Hypertension/CHF/CAD Annual BMP Blood Test 02/29/2024 Influenza Vaccine (Season Ended) 2025 04/26/20 12 Cholesterol Screening (Lipid Panel) 04/10/2029 04/10/2024 HIB Vaccines Aged Out No longer eligi ble based on patient's age to complete this topic HPV Vaccines Aged Out No longer eligi ble based on patient's age to complete this topic Hepatitis A Vaccines Aged Out No long er eligible based on patient's age to complete this topic Hepatitis B Vaccines Aged Out No long er eligible based on patient's age to complete this topic IPV Vaccines Aged Out No longer eligi ble based on patient's age to complete this topic MMR Vaccines Aged Out No longer eligi ble based on patient's age to complete this topic Meningococcal ACWY Vaccine Aged Out N o longer eligible based on patient's age to complete this topic Meningococcal B Vaccine Aged Out No l onger eligible based on patient's age to complete this topic RSV Immunization Patients Un prince 20 months Aged Out No longer eligible b ased on patient's age to complete this topic Varicella Vaccines Aged Out No longer eligible based on patient's age to complete this topic Procedures Procedure Name Priority Date/Time Associated Diagnosis Comments ECG 12-LEAD Routine 07/22/2024 2:11 PM EST Coronary artery disease involving umkumiut coronary artery of umkumiut heart without angina pectoris LIPID PANEL Routine 04/10/2024 7:07 AM EST Hyperlipidemia, unspecified hyperlipidemia type from Last 3 Months or Most Recently Relevant to Health Maintenance Results * ECG 12 lead (07/22/2024 2:11 PM EST) Ventricular Rate ECG 62 BPM GEMUSE Atrial Rate 62 BPM GEMUSE P-R Interval 140 ms GEMUSE QRS Duration 86 ms GEMUSE Q-T Interval 424 ms GEMUSE QTc 430 ms GEMUSE P Wave [place] 74 degrees GEMUSE R [place] 75 degrees GEMUSE T [place] -25 degrees GEMUSE ECG Interpretation Normal sinus rhythm Nonspecific ST and T wave abnormality Abnormal ECG When compared with ECG of 30-JUL-2017 18:27, Premature ventricular complexes are no longer Present Confirmed by Ramón TINOCO, CHUY ([id number]) on 07/22/2024 4:42:17 PM GEMUSE 07/22/2024 2:11 PM EST 07/22/2024 4:42 PM EST us Chuy Tinoco MD ECG ORDERABLES Final Result GEMUSE * (ABNORMAL) Lipid panel (04/10/2024 7:07 AM EST) Cholesterol Total 85(L) 100 - 199 mg/dL [facility] Triglycerides 74 0 - 149 mg/dL [facility] HDL Cholesterol 40 >39 mg/dL [facility] VLDL Cholesterol Calculated 16 5 - 40 mg/dL [facility] LDL Chol Calc (NIH) 29 0 - 99 mg/dL [facility] 1 Blood Venous blood specimen / Unknown 04/10/2024 7:07 AM EST 04/10/2024 Narrative [facility] - 04/11/2024 1:06 AM EST Performed at: ??01 - [facility] [address] ??[id number] Sap Pi Developer: Shaneka Aldridge MD, Phone: ??[phone] us Chuy Tinoco MD LAB BLOOD ORDERABLES Final Resul t [facility] 1 from Last 3 Months or Most Recently Relevant to Health Maintenance Insurance MEDICARE [facility] Advance Directives Documents on File Type Date Recorded 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 Expl anation Health Care Decision (hx) 02/03/2023 AD COLLADO DIRECTIVE Health Care Decision (hx) 02/03/2023 AD COLLADO DIRECTIVE Health Care Decision (hx) 02/03/2023 AD COLLADO DIRECTIVE Health Care Decision (hx) 02/03/2023 AD COLLADO DIRECTIVE Health Care Decision (hx) 02/03/2023 AD COLLADO DIRECTIVE Health Care Decision (hx) 02/03/2023 AD COLLADO DIRECTIVE Health Care Decision (hx) 02/03/2023 AD COLLADO DIRECTIVE Health Care Decision (hx) 02/03/2023 AD COLLADO DIRECTIVE Care Teams Supervisor Painting Relationship Specialty Start Date End Date Arsh Cortez MD [address] [facility] [address] [place], [place] PCP - General Internal Medicine 08/29/18
--- OUTSIDE RECORDS SUMMARY | 2024-10-03 13:37 | XMS_ITS | Encounter Summary ---
Author Organization [facility] [address] Care Team Providers Care Auto Body Repair Estimator Name Role Phone Arsh Cortez MD Primary Care Provider [phone] Encounter Details Date Type Department Care Team (Late st Contact Info) Description 10/03/2024 Telephone [facility] - [facility] [address] [facility] [address] [place] [phone] Alvarez Tinoco MD [address] [place] [address] Social History Tobacco Use Types Packs/Day Years [...] on file documented as of this encounter Progress Notes * Miki Yoon - 10/03/2024 9:35 AM EDT Patient called to return ?somebody's call from just now. I do not see a call documented. The patient can be reached at [phone]. documented in this encounter Plan of Treatment Upcoming Encounters Date Type Department Care Team (Late st Contact Info) Description 12/30/2024 10:40 AM EDT Office Visit [facility] - [address] [place] [address] Precious Burkett NP [address] [place] [address] 03/05/2025 9:50 AM EDT Office Visit [facility] - [address] [place] [address] Alvarez Tinoco MD [address] [place] [address] 09/02/2025 12:00 PM EDT Ancillary Procedure [facility] - [address] [place] [address] 10/06/2025 9:30 AM EDT Office Visit [facility] - [place] [address] [place] [address] Heraclio Johnson MD [address] [place] [address] documented as of this encounter Visit Diagnoses Not on filedocumented in this encounter Care Teams Auto Body Repair Estimator Relationship Specialty Start Date End Date Arsh Cortez MD [address] [place], [place] PCP - General Internal Medicine 08/29/18 documented as of this encounter
--- OUTSIDE RECORDS SUMMARY | 2024-10-03 13:38 | XMS_ITS | Data Portability ---
Author Organization [place] - [facility], Allergy Address [address] [place] [id number] Care Team Providers Care Feather Mixer Name Role Phone TYRONE PELAEZ Primary Care Provider Assessment Encounter Date Assessment Date Assessment LastModified by Organization Details LastModified Time 06/17/2024 06/17/2024 Patient's audiogram shows bilateral moderate to severe sensorineural hearing loss with well maintained speech discrimination. The asymmetry noted today has been present since audiometric testing dating back to 2008, and therefore does not need any further retrocochlear workup. There is enough hearing loss to affect day-to-day hearing performance. We discussed in detail the pros and cons of amplification (hearing aids). We discussed the connection between untreated hearing loss and increased risk of dementia, falling and accidents. After full discussion, the patient expressed interest in learning more about amplification options. Today we discussed the differences between working with a certified key maker versus a department store for getting medical devices such as hearing aids. Accordingly we will set them up for a hearing aid evaluation. Patient is medically cleared for amplification bilaterally. Physical examination revealed signs of excessive Q-tip use today. Today we spent some time talking about the fact that cerumen is a natural antibiotic, antifungal, facilities maintenance technician, and moisturizer of the delicate external auditory canal skin. The use of Q-tips strips away this natural protection and makes the ear canal skin more likely to become itchy, irritated or become infected. There is also the risk of trauma to the tympanic membranes as well. We discussed proper aural hygiene techniques to maintain the health of the external ears. [email or web address] Not available 06/17/2024 11:52:16 07/11/2024 07/11/2024 Discussed various types models and levels of technology. Patient is interested in either a mid or high end level of technology in a rechargeable option. Recommended Widex Moment 440 ($5080) or 330 ($4544) #3 R/L M receivers medium single vented dome in ho gold color. Patient needs to discuss finances prior to proceeding. Patient will call when ready to proceed. [email or web address] Not available 07/11/2024 09:33:12 Plan of Treatment Reminders Order Date Submit Date Provider Last Modified By Organization Details Last Modified Time Details Appointments None record ed. Lab None record ed. Referral None record ed. Procedures None record ed. Surgeries None record ed. Imaging None record ed. Medication Orders None record ed. Patient TargetsNo targets recorded. Patient InstructionsNo instructions recorded. Reason for Referral None Reported. Results Created Date Observation Date Name Description Value Unit Range Abnormal Flag Note LastModifiedBy Organization Detail LastModifiedTime 06/17/19 audio gram No observ ation record ed. BARCODE Not Available 2024 15:52:58 Result Notes None recorded. Problems Name Problem SNOMED Code Status Onset Date Resolution Date Notes Provider Name and Address Organization Details Recorded Time Sensorineural hearing loss of bilateral ears [id number] Active 2024 FERNANDA PEACE, MINAL [address], [phone], [place] - [facility] 11:12:10 Problem Notes None recorded. Procedures Surgical History Date Name Laterality Status Provider Name and Address Organization Details Recorded Time 06/17/2024 Comp Audio with Tymps - 72319 & [id number] completed MINAL KAUFMAN [address], [phone], [facility] - [facility] 06/17/2024 11:15:00 06/17/2024 Comp Audio with Tymps - 38751 & [id number] completed MINAL KAUFMAN [address], [address], [facility] - [facility] 06/17/2024 11:12:00 Imaging Results Imaging Date Name Status LastModified by Organiz ation Details LastModified Time 06/17/2024 audiogram completed BARCODE Information no t available 06/17/2024 15:52:58 Procedure Notes None recorded. Medical Equipment None Reported. Allergies No known drug allergies Medications Name Sig Start Date Stop Date Status Note LastModified by Organization Details LastModified Time celecoxib 200 mg capsule TAKE 1 CAPSULE BY MOUTH EVERY DAY active Not Available Not Available No t Available atorvastati n 80 mg tablet TAKE 1 TABLET BY MOUTH EVERY DAY 06/17 completed Not Available Not Available Not Available atorvastati n 20 mg tablet TAKE 1 TABLET (20 MG TOTAL) BY MOUTH ONE TIME EACH DAY active Not Available Not Available No t Available azithromyci n 250 mg tablet TAKE 2 TABLETS BY MOUTH TODAY, THEN TAKE 1 TABLET DAILY FOR 4 DAYS DIRECTED active Not Available Not Available No t Available metoprolol succinate ER 50 mg tablet,exte nded release 24 hr TAKE 1 TABLET BY MOUTH EVERY DAY active Not Available Not Available No t Available prednisone 20 mg tablet TAKE 2 TABLETS BY MOUTH EVERY DAY active Not Available Not Available No t Available clopidogrel 75 mg tablet TAKE 1 TABLET BY MOUTH EVERY DAY active Not Available Not Available No t Available levothyroxi ne 100 mcg tablet TAKE 1 TABLET BY MOUTH EVERY DAY active Not Available Not Available No t Available levothyroxi ne 88 mcg tablet TAKE 1 TABLET BY MOUTH EVERY DAY 06/17 completed Not Available Not Available Not Available benzonatate 100 mg capsule TAKE 1 CAPSULE BY MOUTH THREE TIMES A DAY active Not Available Not Available No t Available methylpredn isolone 4 mg tablets in a dose pack TAKE 6 TABLETS ON DAY 1 DIRECTED ON PACKAGE AND DECREASE BY 1 TAB EACH DAY FOR A TOTAL OF 6 DAYS active Not Available Not Available No t Available albuterol sulfate HFA 90 mcg/actuati on aerosol inhaler INHALE 2 PUFFS 4 TIMES A DAY NEEDED FOR WHEEZE OR FOR SHORTNESS OF BREATH FOR 14 DAYS active Not Available Not Available No t Available finasteride 5 mg tablet TAKE 1 TABLET BY MOUTH EVERY DAY active Not Available Not Available No t Available amoxicillin 875 mg-potassiu m clavulanate 125 mg tablet TAKE 1 TABLET BY MOUTH TWICE A DAY FOR 7 DAYS 06/17 completed Not Available Not Available Not Available ezetimibe 10 mg tablet TAKE 1 TABLET BY MOUTH EVERY DAY 06/17 completed Not Available Not Available Not Available tadalafil 10 mg tablet TAKE 0.5 TABLET BY MOUTH NEEDED FOR SEXUAL ACTIVITY active Not Available Not Available No t Available pregabalin 75 mg capsule TAKE 1 CAPSULE BY MOUTH TWICE A DAY active Not Available Not Available No t Available budesonide- formoterol HFA 80 mcg-4.5 mcg/actuati on aerosol inhaler INHALE 2 PUFFS BY MOUTH TWICE A DAY active Not Available Not Available No t Available Anoro Ellipta 62.5 mcg-25 mcg/actuati on powder for inhalation INHALE 1 PUFF BY MOUTH DAILY active Not Available Not Available No t Available Repatha SureClick 140 mg/mL subcutaneou s pen injector INJECT 140 MG INTO THE SKIN EVERY 14 DAYS active Not Available Not Available No t Available Vitals None Recorded Social History None recorded. Functional Status None recorded. Mental Status None recorded. Family History Nothing Reported. Medical History No medical history recorded. Past Encounters Encounter ID Performer Location Encounter Start Date Encounter Closed Date Diagnosis/Indication Diagnosis SNOMED-CT Code Diagnosis ICD10 Code Diagnosis Note [id number] TENZIN ALEXANDER MD [facility] [address] [address] 06/17/2024 10:47:35 06/17/2024 11:50:00 Sensorineural hearing loss of bilateral ears [id number] H90.3 Audiologic al evaluation [facility]: [facility]{{Norm al* Normal through 2 kHz Mild M oderate Mo derately-s evere Terese re Profoun d}} {{hearing hearing. s loping to a mild slopi ng to a moderate s loping to moderately severe slo ping to severe slo ping to profound* flat high frequency low frequency mid frequency cookie bite carmen curve}} {{with sen sorineural hearing loss with* cond uctive hearing loss with mixed hearing loss with}} {{excellen t good* fa ir poor no measurable }} word recognitio n.Left ear:{{Norm al* Normal through 2 kHz Mild M oderate Mo derately-s evere Terese re Profoun d}} {{hearing hearing. s loping to a mild slopi ng to a moderate s loping to moderately severe slo ping to severe slo ping to profound* flat high frequency low frequency mid frequency cookie bite carmen curve}} {{with sen sorineural hearing loss with* cond uctive hearing loss with mixed hearing loss with}} {{excellen t good* fa ir poor no measurable }} word recognitio n. Tympanomet ry:Right Ear:{{Type A* Type As Type Ad Type C Type C, shallow & rounded Ty pe B Type B with large volume Cou ld not maintain a hermetic seal}}Left Ear:{{Type A* Type As Type Ad Type C Type C, shallow & rounded Ty pe B Type B with large volume Cou ld not maintain a hermetic seal}} [id number] MINAL KAUFMAN [facility] [address] [place] [address] 06/17/2024 11:14:48 06/17/2024 11:53:34 Sensorineural hearing loss of bilateral ears 950123779 H90.3 Audiologic al evaluation results: 06[facility]{{Norm al* Normal through 2 kHz Mild M oderate Mo derately-s evere Terese re Profoun d}} {{hearing hearing. s loping to a mild slopi ng to a moderate s loping to moderately severe slo ping to severe slo ping to profound* flat high frequency low frequency mid frequency cookie bite carmen curve}} {{with sen sorineural hearing loss with* cond uctive hearing loss with mixed hearing loss with}} {{excellen t good* fa ir poor no measurable }} word recognitio n.Left ear:{{Norm al* Normal through 2 kHz Mild M oderate Mo derately-s evere Terese re Profoun d}} {{hearing hearing. s loping to a mild slopi ng to a moderate s loping to moderately severe slo ping to severe slo ping to profound* flat high frequency low frequency mid frequency cookie bite carmen curve}} {{with sen sorineural hearing loss with* cond uctive hearing loss with mixed hearing loss with}} {{excellen t good* fa ir poor no measurable }} word recognitio n. Tympanomet ry:Right Ear:{{Type A* Type As Type Ad Type C Type C, shallow & rounded Ty pe B Type B with large volume Cou ld not maintain a hermetic seal}}Left Ear:{{Type A* Type As Type Ad Type C Type C, shallow & rounded Ty pe B Type B with large volume Cou ld not maintain a hermetic seal}} [id number] FERNANDA PEACE, MINAL [place] - [place] 100 [facility],[place] [place] [address] 07/11/2024 08:59:05 07/12/2024 07:47:00 Sensorineural hearing loss of bilateral ears [id number] H90.3 Audiologic al evaluation results: 06/17/2024R ight ear:{{Norm al* Normal through 2 kHz Mild M oderate Mo derately-s evere Terese re Profoun d}} {{hearing hearing. s loping to a mild slopi ng to a moderate s loping to moderately severe slo ping to severe slo ping to profound* flat high frequency low frequency mid frequency cookie bite carmen curve}} {{with sen sorineural hearing loss with* cond uctive hearing loss with mixed hearing loss with}} {{excellen t good* fa ir poor no measurable }} word recognitio n.Left ear:{{Norm al* Normal through 2 kHz Mild M oderate Mo derately-s evere Terese re Profoun d}} {{hearing hearing. s loping to a mild slopi ng to a moderate s loping to moderately severe slo ping to severe slo ping to profound* flat high frequency low frequency mid frequency cookie bite carmen curve}} {{with sen sorineural hearing loss with* cond uctive hearing loss with mixed hearing loss with}} {{excellen t good* fa ir poor no measurable }} word recognitio n. Tympanomet ry:Right Ear:{{Type A* Type As Type Ad Type C Type C, shallow & rounded Ty pe B Type B with large volume Cou ld not maintain a hermetic seal}}Left Ear:{{Type A* Type As Type Ad Type C Type C, shallow & rounded Ty pe B Type B with large volume Cou ld not maintain a hermetic seal}} Health Concerns Section Related Observation LastModified by Organization Detai ls LastModified Time None Recorded Concern Status LastModified by Organization Details LastModified Time None Recorded Advance Directives Directive None Recorded Payers Insurance Date Sequence Insurance Name Policy Number Policy Ramírez Covered Member ID Ramírez Member ID Guarantor Name 07/11/2024 1 [place] [employer] Kash Hadley [id number] Kash Hadley 07/11/2024 2 [facility] [employer]GRAM [id number] Kash Hadley [id number] Kash Hadley Notes Date Note Type Note Provider Name and Address Organization Details Recorded Time 06/17/2024 text/html 74-year-old male who returns to the practice after a 14-year hiatus. He underwent bilateral exostosis removal in 2010 with me. He had successful postoperative results. Patient returns today because he went to [facility] for audiometric testing in Apr and was told that he had fluid . Patient used to have hearing aids from [facility] which never really worked very well. TENZIN ALEXANDER MD [address], [address], [facility] - [facility] 06/17/2024 11:52:34 07/11/2024 text/html Patient has a kn own [id number] SNHL. Was recently cleared for amplification by Dr Alexander. He has [facility] Federal $2500 every 5 years benefit that requires prior approval. He has noticed increased difficulty hearing in every day situations. FERNANDA PEACE, MINAL 100 [facility],[address], [address], [facility] - [facility] 07/11/2024 09:33:26
== END 2024-10-03 14:05 | disposition home or self-care (01) ==
LOC: HO.HUSH 13:04
PROVIDERS: PCP Internal Medicine; Visit Provider Urology
DX: N52.01 Erectile dysfunction due to arterial insufficiency (principal); N40.1 Benign prostatic hyperplasia with lower urinary tract symptoms; N13.8 Other obstructive and reflux uropathy; R97.20 Elevated prostate specific antigen [PSA]
CPT/HCPCS: 99213; G2211

== ENCOUNTER → 2024-10-03 13:04 | Outpatient (BNVA) | payer MEDICARE, BC, SELFPAY | PROVIDERS: PCP Internal Medicine; Visit Provider Urology | DX: Z13.89 Encounter for screening for other disorder (principal) ==